=== PATIENT | male | born 1985 | race Asian ===

== ENCOUNTER → 2025-05-01 | Outpatient (CLI) | payer MEDICAID, SELFPAY ==
--- NOTE | 2025-05-01 08:45 | XR_ITS ---
Examination: Abdomen sonogram, complete Date and time of exam: May 01, 2025, 0930 hours INDICATIONS: Elevated liver function tests on laboratory examination today. Technique: Multiple real-time grayscale transabdominal sonographic images of the abdomen have been obtained. Findings: Normal gallbladder. Normal common bile duct 0.4 cm Pancreatic head 2.5 cm Aorta not enlarged. Liver 13.5 cm fatty infiltration Normal hepatopetal portal venous flow Patent IVC Right kidney 11.2 cm renal cortex 2.3 cm Left kidney 11.5 cm renal cortex 2.1 cm Moderate renal scar formation Spleen 10.9 cm IMPRESSION: Normal gallbladder. Moderate renal parenchymal scar formation
== END | disposition home or self-care (01) ==
DX: N28.89 Other specified disorders of kidney and ureter (principal)
CPT/HCPCS: 76700